=== PATIENT | male | born 1980 | race Caucasian/White ===

== ENCOUNTER 2017-04-19 22:59 | Emergency (ER) | payer SELFPAY ==
[~2017-04-19] VITALS: Ht 182.9 cm; Wt 111.1 kg
[2017-04-19 23:22] VITALS: BP 129/90
--- NOTE | 2017-04-19 23:26 | NUR ---
to Bed 7
--- NOTE | 2017-04-19 23:44 | NUR ---
Patient being evaluated by physician at bedside.
[2017-04-19] MEDS ORDERED: LIDOCAINE 1% 500 MG/50 ML VIAL INJ ONE (23:45)
[2017-04-19] MEDS ORDERED: KETOROLAC 60 MG/2 ML VIAL IM ONE (23:45)
--- NOTE | 2017-04-20 00:30 | NUR ---
I&D Procedure done by Dr LAVONNE ZAMORA amt of bleeding noted. Wound packed with . DSD applied. Pt TOLERATED THE procedure WELL. Wound care discussed w/ patient.
[2017-04-20 01:07] VITALS: BP 129/90
--- NOTE | 2017-04-20 01:07 | NUR ---
Patient discharged with v/s stable. Written and verbal after care instructions given and explained. Patient alert, oriented and verbalized understanding of instructions. Ambulatory with steady gait. All questions addressed prior to discharge. ID band removed. Patient advised to follow up with PMD. Rx of KEFLEX,NORCO, MOTRIN given. Patient educated on indication of medication including possible reaction and side effects. Opportunity to ask questions provided and answered.
== END 2017-04-20 01:07 | disposition home or self-care (01) ==
LOC: MED 22:59
DX: L03.011 Cellulitis of right finger (principal); F17.210 Nicotine dependence, cigarettes, uncomplicated; Z88.2 Allergy status to sulfonamides; Z88.8 Allergy status to other drugs, medicaments and biological substances
CPT/HCPCS: 10060; 96372; 99283; J1885; J2001